=== PATIENT | female | born 1995 | race Caucasian/White ===

== ENCOUNTER 2017-09-05 10:02 | Day surgery (SDC) | payer OTHER, SELFPAY ==
[2017-08-31 13:00] VITALS: BMI 26.5
[2017-09-05 10:23] VITALS: BP 121/79; PULSE 63; RESP 16; TEMP 36.1; O2SAT 100; BMI 26.5
[2017-09-05] MEDS: LACTATED RINGERS 1,000 ML 42 ML IV (10:35)
--- NOTE | 2017-09-05 11:19 | PM.PREOP ---
Pre-operative Note Interval Note Pre-op Check: Yes History & Physical Reviewed by Physician, Yes Exam Performed and Yes History & Physical exam performed today by Physician Changes: No
--- NOTE | 2017-09-05 11:41 | SUR.OPER ---
Lithotomy on padded OR bed, head on pillow, arms secured on padded arm boards at <90 degrees abduction. Legs secured in padded yellow fins stirrups.
[2017-09-05] MEDS: LIDOCAINE 1% W/EPI INJ 20 ML INJ (11:45)
[2017-09-05 12:02] VITALS: BP 117/76; PULSE 60; RESP 16; TEMP 36.6; O2SAT 100
[2017-09-05 12:15] VITALS: BP 95/63; PULSE 52; RESP 16; TEMP 36.3; O2SAT 100
[2017-09-05 12:30] VITALS: BP 92/59; PULSE 52; RESP 16; O2SAT 98
[2017-09-05 12:43] VITALS: BP 102/67; PULSE 60; RESP 16; TEMP 36.3; O2SAT 99
--- NOTE | 2017-09-05 14:22 | P.OP_ITS ---
Operative Date/Time/Diagnoses Date of procedure: 09/05/17 Time of procedure: 10:16 Post-op diagnosis: same Procedure & Clinicians Procedure: Marsupialization of left Bartholin cyst Same procedure as scheduled: Yes Surgeon: Piyush Garvin [employer]: Yamile Silva Anesthesia Type: Sedation and Local Operative Notes Findings: 3 cm left Bartholin cyst Closure Type: not applicable Specimen(s): none sent Estimated Blood Loss (mL): 1 Blood products transfused: none Procedure in detail: The patient was brought to the operating room and placed supine on the operating table. She was given intravenous sedation and placed in low lithotomy stirrups. She was then prepped and draped in the usual sterile fashion. A time-out was performed. The skin over the left Bartholin's cyst was anesthetized with 2 cc of 1% lidocaine with epinephrine. A 1.5 cm incision was made in the lower pole of the cyst. The cyst was drained of approximately 5 cc of clear yellowish mucoid secretion and the cavity was explored with a hemostat. The cyst wall was then approximated to the skin with a series of interrupted 5 0 Vicryl sutures the incision was then covered with bacitracin and the patient was taken to the recovery room in stable condition. Complications: none Condition: stable Disposition: same day surgery Plan for aftercare: Home
== END 2017-09-05 12:47 | disposition home or self-care (01) ==
PROVIDERS: Visit Provider Obstetrics & Gynecology
PROC: (CPT 56440; principal; 2017-09-05 11:15)
DX: N75.0 Cyst of Bartholin's gland (principal)
CPT/HCPCS: 56440; J2250; J3010